=== PATIENT | female | born 1990 | race Two or more races ===

== ENCOUNTER 2024-12-20 13:45 | Inpatient (IN) | payer OTHER ==
[~2024-12-20] VITALS: Ht 162.6 cm; Wt 3.6 kg
[2025-01-01 15:12] VITALS: BP 121/79
[2025-01-01] MEDS ORDERED: RINGERS SOLUTION,LACTATED 1,000 ML IV SCH (16:45)
[2025-01-01] MEDS ORDERED: MISOPROSTOL 25 MCG TABLET ONE (16:46)
[2025-01-01 16:58] LABS: BASO % 0.2 % (0.1-1.2); EOS # 0.14 (0.04-0.54); EOS % 1.6 % (0.7-7.0); LYMPH # 1.78 (1.18-3.74); LYMPH % 20.2 % (19.3-53.1); MEAN PLATELET VOLUME 11.10 fl (9.4-12.4); MONO # 0.58 (0.24-0.82); MONO % 6.6 % (4.7-12.5); NEUT # 6.25 (1.56-6.13); NEUT % 70.8 % (34.0-71.1); RED CELL DISTRIBUTION WIDTH 15.5 % (11.6-14.4)
[2025-01-01 17:44] LABS: INR 0.94
[2025-01-01 17:57] LABS: ALT/SGPT 22.0 U/L (12-78); AST/SGOT 16.0 U/L (15-37); BILIRUBIN TOTAL 0.27 mg/dL (0.3-1.2); BUN CREA RATIO 18.0 (7.0-25.0); CREATININE SERUM 0.5 mg/dL (0.55-1.02); GFR 139.6; GLOBULINA 3.4 G/DL (2.4-3.5); GLUCOSE FASTING 70.0 mg/dL (65-100); OSMOLALITY SERUM 278.0 MOSM/KG (275-295); TSH 2.37 uIU/mL (0.358-3.74)
[2025-01-01] MEDS ORDERED: PRENATAL TABLE1 EAC4 (18:15)
[2025-01-01] MEDS ORDERED: SYNTHROID75 MCG (18:16)
[2025-01-01] MEDS ORDERED: MISOPROSTOL 25 MCG TABLET VAG NR (18:30)
[2025-01-01 20:15] VITALS: BP 128/76
[2025-01-01 23:43] VITALS: BP 113/78
[2025-01-02 04:20] VITALS: BP 134/82
[2025-01-02] MEDS ORDERED: OXYTOCIN 500 ML IV ONE (07:30)
[2025-01-02 07:48] VITALS: BP 120/65
[2025-01-02 11:39] VITALS: BP 133/77
[2025-01-02] MEDS ORDERED: CEFAZOLIN SODIUM 1,000 MG VIAL ONE ×2 (13:23→14:50)
[2025-01-02] MEDS ORDERED: CEFAZOLIN SODIUM 1,000 MG VIAL IV SCH (14:00)
[2025-01-02] MEDS ORDERED: OXYTOCIN 10 UNITS/ML VIAL ONE (14:49)
[2025-01-02] MEDS ORDERED: ERYTHROMYCIN BASE OPHT 1GM EACH TUBE OP ONE (14:49)
[2025-01-02] MEDS ORDERED: CARBOPROST TROMETHAMINE 250 MCG/ML AMPUL IM ONE (14:50)
[2025-01-02] MEDS ORDERED: OXYTOCIN 1,000 ML IV SCH (16:30)
[2025-01-02] MEDS ORDERED: MORPHINE SULFATE 4 MG/ML CARTRIDGE IV PRN (16:30)
[2025-01-02 20:31] VITALS: BP 142/80
[2025-01-03 00:38] VITALS: BP 134/85
[2025-01-03 04:00] VITALS: BP 130/83
[2025-01-03 08:00] VITALS: BP 134/83
[2025-01-03] MEDS ORDERED: OxyCODONE HCL 5 MG TABLET (ROXICODONE) PO PRN (09:45)
[2025-01-03 14:17] LABS: BASO % 0.3 % (0.1-1.2); EOS # 0.09 (0.04-0.54); EOS % 0.9 % (0.7-7.0); LYMPH # 1.58 (1.18-3.74); LYMPH % 15.4 % (19.3-53.1); MEAN PLATELET VOLUME 10.20 fl (9.4-12.4); MONO # 0.56 (0.24-0.82); MONO % 5.5 % (4.7-12.5); NEUT # 7.97 (1.56-6.13); NEUT % 77.5 % (34.0-71.1); RED CELL DISTRIBUTION WIDTH 15.8 % (11.6-14.4)
[2025-01-03 16:48] VITALS: BP 124/82; O2SAT 98
[2025-01-04 00:46] VITALS: BP 130/79
[2025-01-04] MEDS ORDERED: OxyCODONE HCL 5 MG TABLET (ROXICODONE) PO PRN (06:00)
[2025-01-04 08:00] VITALS: BP 126/82
== END 2025-01-04 14:39 | disposition home or self-care (01) | DRG 788 ==
LOC: OB/GYN 12-28 13:45 → LDR 01-01 14:46 → O/R 01-02 15:47 → OB/GYN 01-02 17:46
PROVIDERS: Obstetrics & Gynecology; ADMIT Obstetrics & Gynecology; ATTEND Obstetrics & Gynecology
PROC: 4A1HXCZ Monitoring of Products of Conception, Cardiac Rate, External Approach (ICD-10-PCS; 2025-01-01)
PROC: 3E033VJ Introduction of Other Hormone into Peripheral Vein, Percutaneous Approach (ICD-10-PCS; 2025-01-01)
PROC: 3E0P7VZ Introduction of Hormone into Female Reproductive, Via Natural or Artificial Opening (ICD-10-PCS; 2025-01-01)
PROC: 10D00Z1 Extraction of Products of Conception, Low, Open Approach (ICD-10-PCS; principal; 2025-01-02 15:00)
DX: O82 Encounter for cesarean delivery without indication (principal); O33.8 Maternal care for disproportion of other origin; Z3A.40 40 weeks gestation of pregnancy; Z37.0 Single live birth

== ENCOUNTER → 2024-12-25 | Outpatient (CLI) | payer OTHER | END | disposition home or self-care (01) | LOC: NST 17:31 | PROVIDERS: ATTEND Obstetrics & Gynecology Maternal & Fetal Medicine | DX: Z34.83 Encounter for supervision of other normal pregnancy, third trimester (principal) ==